=== PATIENT | female | born 1945 | race Caucasian/White ===

== ENCOUNTER → 2018-05-11 09:08 | Outpatient (CLI) | payer MEDICARE, OTHER ==
--- NOTE | ~2018-05-11 | EC ---
PATIENT:ANTOINE POTTER DATE OF SERVICE: 05/11/18 SEX: F MEDICAL RECORD: [id number] DATE OF : [birth year] LOCATION:D[facility] AGE OF PATIENT: 73 ADMISSION DATE: 05/11/18 REFERRING PHYSICIAN: INTERPRETING PHYSICIAN: FABIEN NINA MD ECHOCARDIOGRAM REPORT ECHO CHARGES 4 ECHO COMPLETE Date: 05/11 CLINICAL DIAGNOSIS: AFIB/FLUTTER/SOB/PALPS/CP ECHOCARDIOGRAPHIC MEASUREMENTS (adult normal given) AC root (d.<3.7cm) 3.6 cm LV Septum d (<1.2 cm> 1.6 cm Valve Excursion 1.4 cm LV Septum (systole) 1.5 cm Left Atria (s.<4.0cm> 4.1 cm LVPW d(<1.2cm) 1.1 cm RV (d.<2.3cm) 3.7 cm LVPW (sytole) 1.5 cm LV diastole(<5.6CM) 4.8 cm MV E-F(>70mm/sec) cm LV systole 3.2 cm LVOT Diameter 1.6 cm MV exc.(>10mm) 1.1 cm Est.ejection fraction (50-75%) % DOPPLER: LVIT cm/sec A 28.0 cm/sec E 80.0 cm/sec LA cm/sec RVSP 42 mmHg LVOT 84 cm/sec AOP1/2T m/s Asc. Ao 122 cm/sec RVOT 80 cm/sec RA cm/sec PA 116 cm/sec AV Gradient Peak 5.99 mmHg AV Mean 3.02 mmHg AV Area 1.5 cm MV Gradient Peak 5.12 mmHg MV Mean 1.85 mmHg MV Area cm COMMENTS: Telegraph Editor: Mulugeta ZHENG Executive Talent Acquisition Consultant: Slava Nina TAPE# PACS Pericardial Effusion Y DATE OF SERVICE: 05/11/2018 PROCEDURE: Transthoracic echocardiogram. FINDINGS: 1. The left atrium is 4.7 cm, moderately dilated. 2. The left ventricle has ejection fraction of 55%. The patient was noted to have AFib, although one inflow looks like it could be flutter waves, so it is fib/flutter. The overall size of the left ventricle is normal. There is evidence of left ventricular hypertrophy. Inflow characteristics of course were ECHOCARDIOGRAM REPORT [id number] ABBEY,CARLANN GELLATLY difficult to gauge because of the atrial dysrhythmia. The overall ejection fraction is 50% to 55%. There is no obvious regional wall motion abnormalities. 3. The aortic valve is normal. 4. The mitral valve has moderate mitral regurgitation. It is posteriorly directed. 5. The tricuspid valve has moderate tricuspid regurgitation, RVSP 42 mmHg. 6. The right ventricle is mildly dilated. 7. The right atrium is moderately dilated. 8. The pulmonic valve is shown to have mild regurgitation. There is a trace pericardial effusion. CONCLUSIONS: The patient has evidence of hypertensive heart disease with an atrial dysrhythmia and moderate mitral regurgitation and dilatation of the left atrium. TRANSINT:[id number] Voice Confirmation ID: [id number] DOCUMENT ID: [id number] FABIEN NINA MD at 1127 CC: [id number] DICTATION DATE: 05/12/18918 MEDICAL CODING SPECIALIST: 05/12/18 1143 [facility] CLI 05/11/18 [id number] [place] [address]
[~2018-05-11 09:08] MED LIST: BAYER CHEWABLE81 MG PO; BETAPACE 80 MG80 MG PO; COUMADIN5 MG PO; COZAAR50 MG PO; ELIQUIS5 MG PO; ESTRACE2 MG PO; FUROSEMIDE40 MG PO; K-DUR20 MEQ PO; LOPRESSOR25 MG PO; VITAMIN D31000 UNIT PO
[2018-07-06 07:23] VITALS: BMI 20.2
== END | disposition home or self-care (01) ==
LOC: D.ECHO 09:08
DX: I48.91 Unspecified atrial fibrillation (principal); I48.92 Unspecified atrial flutter; R06.02 Shortness of breath; R00.2 Palpitations; R07.9 Chest pain, unspecified

== ENCOUNTER → 2018-05-20 07:23 | Outpatient (CLI) | payer MEDICARE, OTHER ==
[~2018-05-20] VITALS: Ht 170.2 cm; Wt 62.3 kg
--- NOTE | ~2018-05-20 | TEE ---
PATIENT:ANTOINE POTTER MEDICAL RECORD: [id number] LOCATION:D[facility] AGE OF PATIENT: 73 ADMISSION DATE: 05/20/18 SEX: F REFERRING PHYSICIAN: INTERPRETING PHYSICIAN: FABIEN NINA MD TRANSESOPHAGEAL ECHOCARDIOGRAM Date: 05/20/18 PARVIN CHARGE Y INDICATIONS: AFIB ASSESS FOR CLOT PRECARDIOVERSION PREMEDICATIONS: PATIENT'S RESPONSE PROCEDURE DOPPLER MEASUREMENTS: LVIT LA PA RA LVOT RVOT Asc. Ao AV Gradient Peak AV Mean AV Area MV Gradient Peak MV Mean MV Area INTERPRETATION: Doppler: 2-D: NO CLOTS COLOR FLOW DOPPLER NORMAL SALINE STUDY: MISCELLANOUS: DIAGNOSIS: PLAN: Fleet Manager:4 Dr. Nina Ironing Machine Operator: 2 ARNOLD ZHENG COMMENTS: DATE OF SERVICE: PROCEDURE: The patient is a 73-year-old white female who underwent a transesophageal echocardiogram and also DC cardioversion. INDICATIONS: The patient is in atrial flutter with rapid ventricular response. PROCEDURE IN DETAIL: The patient was brought into the cardiac catheterization lab in a stable condition, placed in supine position on the catheterization TRANSESOPHAGEAL ECHOCARDIOGRAM REPORT [id number] GADIEL POTTER table where she had the oral airway topically anesthetized with lidocaine and Maalox. We were then able to utilize that topical anesthesia to place the transesophageal echocardiogram into the mid esophagus to visualize the left atrium, left atrial appendage specifically. Once visualized, the probe was withdrawn. FINDINGS: The left atrium is moderately enlarged in the 4.5 to 4.7 cm range. There was no spontaneous echo contrast. The left atrium actually showed organized conduction and pulse wave velocities that were about 50 milliseconds. The patient had no visualized thrombus and the procedure was terminated with successful visualization of the left atrium and left atrial appendage. DC CARDIOVERSION: The patient had anterior and posterior pads placed in appropriate position. We then charged the defibrillator to 200 joules and then in biphasic fashion we delivered 200 joules of electricity and initially the patient was in sinus rhythm and then went into an SVT and then went back into a sinus rhythm. We then gave 5 of Lopressor IV and the patient's rhythm became more regularized without PAT and slowed down into the 60s to 70s and blood pressure was fine. She recovered nicely from the anesthesia. Anesthesia was given via the anesthesiologist with propofol. IMPRESSION: The patient had atrial flutter with rapid ventricular response. She had dilated left atrium. There is no evidence of left atrial appendage thrombus. She underwent successful cardioversion with biphasic 200 joules. We will continue with beta blockade. We will continue with the Eliquis for at least 3 weeks until we can verify continued resolution of the arrhythmia. We will treat very aggressively the patient's underlying risk; however, given the patient did have significant angina at times with fast heart rates and abnormal stress test, we will likely go forward with diagnostic angiography here in the near future. TRANSINT:[id number] Voice Confirmation ID: [id number] DOCUMENT ID: [id number] at 1436 CC: [id number] DICTATION DATE: 05/20/18 1111 HUMAN ANATOMY TEACHER: 05/20/[address] [facility] CLI 05/20/18 [id number] [place] [address]
--- NOTE | ~2018-05-20 | HEMODYNAMI ---
PATIENT:ANTOINE POTTER MEDICAL RECORD: [id number] : 49 LOCATION:[facility] ADMISSION DATE: 05/20/18 Generatedon:05/20/201811:14 Patient name: ANTOINE POTTER Patient #: [id number] SSN: D OB: 1945 Date of study: 05/20/2018 Page: Of Hemodynamic Procedure Report Patient Data Patient Demographics Procedure consent was obtained First Name: ANTOINE Gender: Female Last Name: ABBEY : 1945 [facility] Initial: ANGEL Age: 73 year(s) Patient #: [id number] Race: Unknown Additional ID: [id number] Contact details Address: [address] [place] [address] State: [place] City: [facility] Zip code: [address] Past Medical History Allergies Allergen Reaction Date Comments Reported Other allergy 05/20/2018 Keflex Admission Admission Data Admission Date: 05/20/2018 Admission Time: 7:23 Admit Source: Other Procedure Procedure Types Cath Procedure Diagnostic Procedure LHC Cardioversion External PARVIN Procedure Description Procedure Date Procedure Date: 05/20/2018 Procedure Start Time: 10:52 Procedure End Time: 11:04 Procedure Staff Name Function Alexis Rodriguez MD Performing Physician Adrianne Rosado RT Monitor Ramya Bryant RN Nurse Mihir Pedraza RT Janitorial Supervisor Wilber Esquivel MD Additional personnel Catrachito Reyes Mold Shifter Procedure Data Cath Procedure Estimated blood loss: 0 ml Procedure Complications No complications Procedure Medications Medication Administration Route Dosage Oxygen etCO2 Nasal cannula 2 l/min unlisted medication 15 ml unlisted medication 30 ml Lopressor I.V. 5 mg Lopressor I.V. 2.5 mg Refer to Anesthesia Notes for Sedation Medications Hemodynamics Rest Heart Rate: 152 (bpm) Snapshots Pre Cath Intra NCS Post Cath Vital Signs Time Heart Resp SPO2 etCO2 NIBP (mmHg) Rhythm Pain Sedation Rate (ipm) (%) (mmHg) Status Level (bpm) 10:33:02 125 16 99 0 Measuring NSR 0 (11) 10(A) , No pain 10:37:01 138 16 99 0 No Cuff NSR 0 (11) 10(A) , No pain 10:38:39 115 19 99 0 144/102(114) NSR 0 (11) 10(A) , No pain 10:42:45 129 20 99 24.7 145/107(117) NSR 0 (11) 10(A) , No pain 10:46:53 124 13 96 27 123/85(111) NSR 0 (11) 10(A) , No pain 10:51:03 139 19 98 24.7 126/80(112) NSR 0 (11) 10(A) , No pain 10:56:18 117 26 100 17.2 113/78(86) NSR 0 (11) 9(A) , No pain 10:59:41 97 17 98 12.7 114/88(101) NSR 0 (11) 9(A) , No pain 11:03:51 73 16 100 13.4 104/74(83) NSR 0 (11) 10(A) , No pain Medications Time Medication Route Dose Verified Delivered Reason Notes Effective ness by by 10:33:04 Oxygen etCO2 2 Alexis Buffie used for Nasal l/min Michael Bryant RN procedure cannula 10:35:22 Refer to Alexis Buffie Anesthesia Michael Bryant RN Notes for MD Sedation Medications 10:35:31 Licocaine gargle 15 ml Alexis Buffie Per Visc. Michael reddy MD 10:35:58 Maalox gargle 30 ml Alexis Buffie Per Michael reddy MD 10:58:15 Lopressor I.V. 5 mg Alexis Buffie Per Michael reddy MD 11:06:44 Lopressor I.V. 2.5 Alexis Buffie Per mg Michael Bryant RN physician Procedure Log Time Note 9:32:55 Informed consent obtained and on chart 9:32:57 Admit Source: Other 9:33:15 Diagnostic Cath status Elective 9:33:32 Time tracking: Regular hours (M-F 7:00 - 5:00) 9:33:35 Plan of Care:Hemodynamics will remain stable., Cardiac rhythm will remain stable., Comfort level will be maintained., Respiratory function will remain adequate., Patient/ family verbilizes understanding of procedure., Procedure tolerated without complication., Recovers from procedure without complications.. 10:12:40 Ramya Bryant RN sent for patient. Start room use. 10:24:43 Patient received from Pre/Post Procedure Room to CCL 2 Alert and oriented. Tansferred to table in Supine position. 10:25:23 Wilber Esquivel MD present and monitoring patient for TIVA. 10:31:08 Warm blankets applied, and india hugger turned on for patient comfort. 10:31:09 Correct patient and procedure confirmed by team. 10:31:10 ECG and BP/O2 sat monitors applied to patient. 10:31:12 Vital chart was started 10:31:17 Baseline sample Acquired. 10:31:24 Rhythm: atrial flutter 10:31:25 Full Disclosure recording started 10:31:34 H&P Date Dictated: 05/20/2018 Within 30 days and on chart., H&P Addendum completed by physician on day of procedure. (MUST COMPLETE FOR ALL OUTPATIENTS). 10:31:40 Family in waiting room. 10:31:42 Patient NPO since Midnight. 10:32:01 Patient allergic to Other allergyKeflex 10:32:06 Is the patient allergic to Iodine/contrast media? No. 10:32:08 Is patient on blood thinner?No 10:32:10 Patient diabetic? No. 10:32:25 Snore? No 10:32:27 Sleep apnea? No 10:32:35 Dentures? Yes in tight 10:32:44 Patient pain scale 0/10 SOB. 10:32:55 IV patent on arrival in left forearm with 0.9% NaCl at O. 10:32:59 Lab results completed and on chart. 10:33:03 Alarms reviewed by R. N. 10:33:04 Oxygen 2 l/min etCO2 Nasal cannula was administered by Ramya Bryant RN; used for procedure; 10:33:04 Physician paged 10:35:22 Refer to Anesthesia Notes for Sedation Medications was administered by Ramya Bryant RN; ; 10:35:31 Licocaine Visc. 15 ml gargle was administered by Ramya Bryant RN; Per physician; 10:35:58 Maalox 30 ml gargle was administered by Ramya Bryant RN; Per physician; 10:37:56 Quick Combo opened to sterile field. 10:38:02 Quick combo pads placed on patients chest and back. 10:40:50 Physician arrived 10:40:51 --------ALL STOP TIME OUT------ 10:40:52 Final Timeout: patient, procedure, and site verified with staff and physician. All members of the team are in agreement. 10:41:00 Sedation plan: TIVA Medication:Propofol 10:51:13 Catrachito Reyes Dental Hygiene Instructor present for PARVIN. 10:52:52 Procedure started. 10:53:48 PARVIN started. 10:54:49 PARVIN completed. 10:55:08 Defibrillator synced and charged to 200 Joules. 10:55:25 Shock delivered. 10:57:10 Patient cardioverted to sinus rhythm . 10:58:15 Lopressor 5 mg I.V. was administered by Ramya Bryant RN; Per physician; 11:03:00 Procedure ended.(Physican Out) 11:03:33 Post-procedure physical assessment completed. ASA score P 2 - A patient with mild systemic disease as per Alexis Rodriguez MD. 11:03:37 Post procedure rhythm: sinus rhythm 11:03:40 Estimated blood loss: 0 ml 11:03:44 Post procedure instruction explained to patient.Patient verbalizes understanding. 11:03:51 Procedure and supply charges have been captured, reviewed, submitted and are correct. 11:04:10 Procedure Complication : No complications 11:04:13 Vital chart was stopped 11:04:14 See physician's report for complete and final results. 11:04:17 Report given to Pre/Post Procedure Room. 11:04:30 Procedure ended. 11:04:30 Full Disclosure recording stopped 11:06:44 Lopressor 2.5 mg I.V. was administered by Ramya Bryant RN; Per physician; 11:09:17 End room use (Document Last) Device Usage Item Manufacture Quantity Catalog Hospital Part Current Minimal Lot# / Name Number Charge Number Stock Esther velasco# Code [id number] 1 [id number] Combo Signature Audit Rudyard Stage Time Signature Unsigned Intra-Procedure 05/20/2018 Adrianne Rosado 11:14:47 AM RT(R) Signatures Monitor : Adrianne Rosado Signature : RT Date : Time : [address] [place] [address]
[2018-05-20 07:48] VITALS: BP 126/72; Ht 170.2 cm; Wt 62.3 kg
[2018-05-20 08:07] LABS: BASOPHILS 0.2 % (0-2); EOSINOPHILS 0.9 % (0-7); HEMATOCRIT 38.7 % (36.0-48.0); HEMOGLOBIN 12.8 g/dL (12-16); IMMATURE GRANULOCYTES 0.2 % (0-5); MCH 30.8 pg (26.0-34.0); MCHC 33.1 g/dL (31.0-37.0); MCV 93.3 fL (80.0-100.0); MEAN PLATELET VOLUME 11.6 fL (7.4-10.4); MONOCYTES 9.7 % (2-11); PLATELET COUNT 176 10x3/uL (130-400); RBC 4.15 10x6/uL (4.00-5.40); RDW 13.5 % (11.5-14.5); WBC 5.7 10x3/uL (4.8-10.8)
[2018-05-20 08:28] LABS: CALCIUM 8.9 mg/dL (8.5-10.1); CARBON DIOXIDE 31.1 mmol/L (21.0-32.0); CREATININE - SERUM 0.9 mg/dL (0.6-1.3); INR 1.29 (0.85-1.17); POTASSIUM - SERUM 4.1 mmol/L (3.5-5.1); PROTIME 15.7 SECONDS (11.6-15.0)
== END | disposition home or self-care (01) ==
LOC: D.CATH 07:23
PROVIDERS: Internal Medicine Cardiovascular Disease
DX: I48.92 Unspecified atrial flutter (principal); Z79.01 Long term (current) use of anticoagulants; Z01.812 Encounter for preprocedural laboratory examination

== ENCOUNTER → 2018-06-29 09:38 | Outpatient (CLI) | payer MEDICARE, OTHER ==
[2018-05-20 07:48] VITALS: BMI 21.5
[2018-06-29 10:14] LABS: BASOPHILS 0.1 % (0-2); EOSINOPHILS 2.9 % (0-7); HEMATOCRIT 42.1 % (36.0-48.0); HEMOGLOBIN 13.7 g/dL (12-16); IMMATURE GRANULOCYTES 0.1 % (0-5); LYMPHOCYTES 30.5 % (15-50); MCH 29.7 pg (26.0-34.0); MCHC 32.5 g/dL (31.0-37.0); MCV 91.3 fL (80.0-100.0); MEAN PLATELET VOLUME 11.6 fL (7.4-10.4); MONOCYTES 10.4 % (2-11); PLATELET COUNT 177 10x3/uL (130-400); RBC 4.61 10x6/uL (4.00-5.40); RDW 13.2 % (11.5-14.5); WBC 6.9 10x3/uL (4.8-10.8)
[2018-06-29 10:46] LABS: ALBUMIN 3.4 g/dL (3.4-5.0); ANION GAP 10.3 mmol/L (8-16); BILIRUBIN - TOTAL 0.71 mg/dL (0.2-1.3); CALCIUM 8.4 mg/dL (8.5-10.1); CARBON DIOXIDE 29.4 mmol/L (21.0-32.0); POTASSIUM - SERUM 4.7 mmol/L (3.5-5.1); PROTEIN - SERUM 6.2 g/dL (6.4-8.2)
== END | disposition home or self-care (01) ==
LOC: D.RAD 09:38
PROVIDERS: Internal Medicine Cardiovascular Disease
DX: I48.91 Unspecified atrial fibrillation (principal); R07.9 Chest pain, unspecified; R00.2 Palpitations

== ENCOUNTER 2018-07-06 06:31 | Outpatient (CLI) | payer MEDICARE, OTHER ==
[~2018-07-06] VITALS: Ht 170.2 cm; Wt 58.6 kg
--- NOTE | ~2018-07-06 | OP ---
PATIENT NAME: ANTOINE POTTER MEDICAL RECORD: [id number] :49 LOCATION:D.[facility] ADMISSION DATE: SURGEON: FABIEN NINA MD DATE OF OPERATION: 07/06/2018 PROCEDURE: Left heart cath, LV gram, coronary angiogram. RAZOR SHARPENER: Fabien Nina MD PROCEDURE IN DETAIL: The patient was brought to cardiac catheterization lab in stable condition. Both groins were sterilely prepped and draped, including the right wrist. The patient had a 6-Occitan sheath placed in the right radial artery using modified Seldinger technique. The patient then had serial catheter utilized to selectively engage the left ventricular cavity, the right coronary artery and the left coronary artery respectively for complete left heart catheterization. FINDINGS: 1. Right coronary artery is a small nondominant vessel, normal. 2. Left main is shown to be normal. 3. The LAD showed to have a mid area of 40% stenosis at the point of a small intramyocardial bridge. 4. The circumflex is shown to have a large, dominant distribution without stenoses. HEMODYNAMICS: Left ventricular ejection fraction is 55%. The end-diastolic pressure was normal. There was 1+ to 2+ mitral regurgitation. EDP was normal. IMPRESSION: 1. Mild single vessel coronary artery disease, [id number] moderate mitral regurgitation. 2. Mild coronary artery disease. RECOMMENDATIONS: Aggressive secondary risk factor modification, medical management. TRANSINT:[id number] Voice Confirmation ID: [id number] DOCUMENT ID: [id number] FABIEN NINA MD at 0738 CC: [id number] DICTATION DATE: 07/06/18 08 MANAGER OF BROADCAST CONTENT: 07/06/18919 [facility] CLI 07/06/18 [id number] [place] [address] [id number]
--- NOTE | ~2018-07-06 | HEMODYNAMI ---
PATIENT:ANTOINE POTTER MEDICAL RECORD: [id number] : 49 LOCATION:[facility] ADMISSION DATE: 07/06/18 Generatedon:07/06/20188:40 Patient name: ANTOINE POTTER Patient #: [id number] SSN: D OB: 1945 Date of study: 07/06/2018 Page: Of Hemodynamic Procedure Report Patient Data Patient Demographics Procedure consent was obtained First Name: ANTOINE Gender: Female Last Name: ABBEY : 1945 Middle Initial: ANGEL Age: 73 year(s) Patient #: [id number] Race: Unknown Additional ID: [id number] Contact details [address]: [address] [place] [address] State: [place] [facility] [place]: [address] Past Medical History Allergies Allergen Reaction Date Comments Reported Other allergy 05/20/2018 Keflex Other allergy 07/06/2018 Keflex Admission Admission Data Admission Date: 07/06/2018 Admission Time: 6:31 Procedure Procedure Types Cath Procedure Diagnostic Procedure [facility] w/Coronaries Procedure Description Procedure Date Procedure Date: 07/06/2018 Procedure Start Time: 8:30 Procedure End Time: 8:39 Procedure Staff Name Function Alexis Rodriguez MD Performing Physician Ramya Bryant RN Nurse Jackelin Michelle RT Scrub Adrianne Rosado RT Monitor Procedure Data Cath Procedure Fluoroscopy Diagnostic fluoroscopy Total fluoroscopy Time: 126 time: 126 min min Diagnostic fluoroscopy Total fluoroscopy dose: 1 dose: 1 mGy mGy Contrast Material Contrast Material Type Amount (ml) Isovue 300 24 Entry Location Entry Primary Successful Side Size Upsize Upsize Entry Closure Alfred ccessful Closure Location (Fr) 1 (Fr) 2 (Fr) Remarks Device Remarks Radial Right 6 Fr Mechanical TR band artery Short Compression Estimated blood loss: 10 ml Diagnostic catheters Device Type Used For End Catheter Placement DIAGNOSTIC Mitchell 110cm 5 Procedure Fr catheter ([id number]) Procedure Complications No complications Procedure Medications Medication Administration Route Dosage Oxygen etCO2 Nasal cannula 2 l/min Lidocaine 2% added to field 20 Heparin Flush Bag added to field 2 bags (1000units/500ml NS) 0.9% NaCl I.V. 100 ml/hr Versed I.V. 2 mg Fentanyl I.V. 25 mcg Radial Cocktail I.A. 1 syringe (Verapomil 2mg/Nitro 400mcg/Heparin 1500units) Hemodynamics Rest Heart Rate: 55 (bpm) Pressure Samples Time Site Value (mmHg) Purpose Heart Use Rate(bpm) 8:33 LV 121/1,12 EDP 55 8:34 LV 115/2,12 Snapshot 55 Gradients Valve Time Site Site Mean SEP/DFP Peak To Heart Use 1 2 (mmHg) (sec/min) Peak Rate (mmHg) (bpm) Aortic 8:34 LV AO 57 Snapshots Pre Cath Intra NCS Post Cath Vital Signs Time Heart Resp SPO2 etCO2 NIBP (mmHg) Rhythm Pain Sedation Rate (ipm) (%) (mmHg) Status Level (bpm) 8:18:06 57 12 100 0 153/76(132) NSR 0 (11) 10(A) , No pain 8:22:47 83 13 100 0 143/93(125) NSR 0 (11) 10(A) , No pain 8:27:25 57 16 96 27.1 149/97(131) NSR 0 (11) 10(A) , No pain 8:32:00 52 17 100 0 117/74(92) NSR 0 (11) 9(A) , No pain 8:36:41 52 16 95 29.3 116/62(79) NSR 0 (11) 10(A) , No pain Medications Time Medication Route Dose Verified Delivered Reason Notes Effectiveness by by 8:18:07 Oxygen etCO2 2 l/min Alexis Buffie used for Nasal Michael Bryant RN procedure cannula 8:18:15 Lidocaine 2% added 20ml Alexis Alexis for local to vial Michael Rodriguez MD anesthetic field SEAY 8:18:21 Heparin Flush added 2 bags Alexis Alexis used for Bag to Michael Rodriguez MD procedure (1000units/500ml field SEAY NS) 8:18:31 0.9% NaCl I.V. 100 Alexis Buffie Per ml/hr Michael Bryant RN physician 8:25:46 Versed I.V. 2 mg Alexis Buffie for sedation Michael Bryant RN, MD 8:28:52 Fentanyl I.V. 25 mcg Alexis Bui for sedation Michael Bryant RN, MD 8:32:23 Radial Cocktail I.A. 1 Alexis arriola (Verapomil syringe Michael Rodriguez MD vasodilation 2mg/Nitro MD 400mcg/Heparin 1500units) Procedure Log Time Note 8:00:03 Time tracking: Regular hours (M-F 7:00 - 5:00) 8:00:07 Plan of Care:Hemodynamics will remain stable., Cardiac rhythm will remain stable., Comfort level will be maintained., Respiratory function will remain adequate., Patient/ family verbilizes understanding of procedure., Procedure tolerated without complication., Recovers from procedure without complications.. 8:00:11 Ramya Bryant RN sent for patient. Start room use. 8:10:16 Patient received from Pre/Post Procedure Room to CCL 1 Alert and oriented. Tansferred to table in Supine position. 8:10:17 Warm blankets applied, and india hugger turned on for patient comfort. 8:10:17 Correct patient and procedure confirmed by team. 8:10:18 Signed procedure consent form obtained from patient. 8:10:19 ECG and BP/O2 sat monitors applied to patient. 8:10:20 Full Disclosure recording started 8:16:37 Vital chart was started 8:18:07 Oxygen 2 l/min etCO2 Nasal cannula was administered by Ramya Bryant RN; used for procedure; 8:18:15 Lidocaine 2% 20ml vial added to field was administered by Alexis Rodriguez MD; for local anesthetic; 8:18:21 Heparin Flush Bag (1000units/500ml NS) 2 bags added to field was administered by Alexis Rodriguez MD; used for procedure; 8:18:31 0.9% NaCl 100 ml/hr I.V. was administered by Ramya Bryant RN; Per physician; 8:21:33 Baseline sample Acquired. 8:21:39 Rhythm: sinus rhythm 8:22:03 H&P Date Dictated: 07/01/2018 Within 30 days and on chart., H&P Addendum completed by physician on day of procedure. (MUST COMPLETE FOR ALL OUTPATIENTS). 8:22:05 Pre-procedure instructions explained to patient. 8:22:07 Family in waiting room. 8:22:11 Patient NPO since Midnight. 8:22:33 Patient allergic to Other allergyKeflex 8:22:39 Is the patient allergic to Iodine/contrast media? No. 8:22:40 Was the patient premedicated? Yes 8:22:42 Is patient on blood thinner?Yes 8:22:55 Coumadin 6 days ago 8:23:03 ACC The patient was administered the following blood thiners within the last 24 hours: None 8:23:06 Patient diabetic? No. 8:23:11 Snore? No 8:23:13 Sleep apnea? No 8:23:15 Deviated septum? No 8:23:19 Opens mouth fully? Yes 8:23:21 Sticks out tongue? Yes 8:23:30 Dentures? Yes tight 8:23:36 Patient pain scale 0/10 ?. 8:23:42 IV patent on arrival in left forearm with 0.9% NaCl at [facility]. 8:23:47 Lab results completed and on chart. 8:23:51 Right Radial & Right Groin area was prepped with chlora-prep and draped in sterile fashion 8:23:53 Alarms reviewed by R. N. 8:23:53 Sharps counted by scrub and verified by R.N. 8:23:54 Physician paged 8:23:55 Physician arrived 8:23:56 --------ALL STOP TIME OUT------ 8:23:56 Final Timeout: patient, procedure, and site verified with staff and physician. All members of the team are in agreement. 8:24:00 Right Radial & Right Groin site verified by team. 8:24:03 Physical assessment completed. ASA score P 2 - A patient with mild systemic disease as per Alexis Rodriguez MD. 8:24:07 Sedation plan: IV Moderate Sedation Medication:Versed, Fentanyl 8:25:46 Versed 2 mg I.V. was administered by Ramya Bryant RN; for sedation; 8:25:53 Use device set Radial Dx or PCI 8:25:55 ACIST Syringe (64122) opened to sterile field. 8:25:56 Medline Cath Pack ([id number]) opened to sterile field. 8:25:56 Bag Decanter (2002) opened to sterile field. 8:25:56 DIAGNOSTIC WIRE .035 260cm J wire (766672) opened to sterile field. 8:25:57 ACIST Hand Control (20332) opened to sterile field. 8:25:57 ACIST Manifold (28293) opened to sterile field. 8:25:58 Tegaderm 4 x 4 (1626W) opened to sterile field. 8:26:00 MBrace Wrist Support ([id number]) opened to sterile field. 8:26:02 NEEDLE Cook 21G 4cm Radial ([id number]) opened to sterile field. 8:26:05 SHEATH 6Fr Prelude Radial ([id number]) opened to sterile field. 8:28:52 Fentanyl 25 mcg I.V. was administered by Ramya Bryant RN; for sedation; 8:30:30 Zero performed for pressure channel P1 8:30:40 Procedure started. 8:30:56 Local anesthetic to right radial artery with Lidocaine 2% by Alexis Rodriguez MD.INITIAL ACCESS ONLY 8:31:46 A 6 Fr Short sheath was inserted into the Right Radial artery 8:32:23 Radial Cocktail (Verapomil 2mg/Nitro 400mcg/Heparin 1500units) 1 syringe I.A. was administered by Alexis Rodriguez MD; for vasodilation; 8:32:26 A DIAGNOSTIC Mitchell 110cm 5 Fr catheter ([id number]) was advanced over the wire and used for Procedure. 8:32:30 LV angiography performed. 8:33:20 LV gram done using LEAL 8:34:39 EF : 55 % 8:34:45 RCA angiography performed. 8:35:03 LCA angiography performed. 8:35:49 Catheter removed. 8:36:30 Sheath removed intact; hemostasis achieved with Mechanical Compression to the Right Radial artery. 8:36:39 Procedure ended.(Physican Out) 8:36:44 Fluoroscopy time 126.00 minutes. 8:36:50 Fluoroscopy dose: 1 mGy 8:36:50 Flurop Dose total: 1 8:36:55 Contrast amount:Isovue 300 24ml. 8:36:58 Sharps counted by scrub and verified by R.N. 8:38:04 TR band inflated with 10cc of air. 8:38:07 Insertion/operative site no bleeding no hematoma. 8:38:13 Post-procedure physical assessment completed. ASA score P 2 - A patient with mild systemic disease as per Alexis Rodriguez MD. 8:38:27 Post procedure rhythm: unchanged. 8:38:31 Estimated blood loss: 10 ml 8:38:34 Post procedure instruction explained to patient.Patient verbalizes understanding. 8:38:51 Procedure and supply charges have been captured, reviewed, submitted and are correct. 8:39:09 Procedure Complication : No complications 8:39:12 Vital chart was stopped 8:39:13 See physician's report for complete and final results. 8:39:15 Report given to Pre/Post Procedure Room. 8:39:18 Patient transfered to Pre/Post Procedure Room with Stretcher. 8:39:21 Procedure ended. 8:39:21 Full Disclosure recording stopped 8:39:24 End room use (Document Last) Device Usage Item Name Manufacture Quantity Catalog Number Hospital Part Current M inimal Lot# / Charge Number Stock Stock Serial# Code ACIST Syringe Acist 1 30741 [id number] 447768 128406 2 0 (87326) [employer] Medline Cath Cardinal 1 [id number] 081497 12969 257960 5 Carnival [facility] ([id number]) Bag Decanter Microtek 1 2001S 672533 05435 741956 5 (2001S) Medical Inc. DIAGNOSTIC WIRE St Chu 1 [id number] 409267 654448 521117 3 0 .035 260cm J wire (549766) ACIST Hand Acist 1 96846 378227 656291 544925 5 Control (43730) [employer] Inc ACIST Manifold Acist 1 29457 149580 246271 922282 5 (14264) [employer] Systems Inc Tegaderm 4 x 4 3M 1 1626W 711264 413812 465479 5 (1626W) MBrace Wrist Advanced 1 140-0250-00 726274 29914 061414 5 Support Vascular ([id number]) Dynamics NEEDLE Cook 21G Cook Medical 1 [id number] 178913 561013 456596 5 4cm Radial (Z71665) SHEATH 6Fr Merit 1 [id number] 978985 502958 204198 5 Prelude Radial Medical ([id number]) DIAGNOSTIC Terumo 1 65-0700 330571 424859 794202 5 Mitchell 110cm 5 Fr catheter (841601) Signature Audit [place] Stage Time Signature Unsigned Intra-Procedure 07/06/2018 Adrianne Rosado 8:40:51 AM RT(R) Signatures Monitor : Adrianne Rosado Signature : RT Date : Time : [place] [address] [place] [address]
[~2018-07-06 06:31] MED LIST changes: -BETAPACE 80 MG80 MG PO; -COUMADIN5 MG PO; -COZAAR50 MG PO; -FUROSEMIDE40 MG PO; -K-DUR20 MEQ PO
[2018-07-06] MEDS ORDERED: COZAAR50 MG PO (06:58)
[2018-07-06] MEDS ORDERED: BETAPACE 80 MG80 MG PO (06:58)
[2018-07-06] MEDS ORDERED: COUMADIN5 MG PO (06:59)
[2018-07-06] MEDS ORDERED: FUROSEMIDE40 MG PO (06:59)
[2018-07-06] MEDS ORDERED: K-DUR20 MEQ PO (06:59)
[2018-07-06 07:23] VITALS: BP 141/63; Ht 170.2 cm; Wt 58.6 kg
[2018-07-06 07:27] LABS: BASOPHILS 0.3 % (0-2); EOSINOPHILS 2.3 % (0-7); HEMATOCRIT 45.2 % (36.0-48.0); HEMOGLOBIN 15.1 g/dL (12-16); IMMATURE GRANULOCYTES 0.1 % (0-5); LYMPHOCYTES 35.6 % (15-50); MCH 30.4 pg (26.0-34.0); MCHC 33.4 g/dL (31.0-37.0); MCV 91.1 fL (80.0-100.0); MEAN PLATELET VOLUME 11.4 fL (7.4-10.4); MONOCYTES 9.8 % (2-11); NEUTROPHILS 51.9 % (40-80); PLATELET COUNT 209 10x3/uL (130-400); RBC 4.96 10x6/uL (4.00-5.40); RDW 13.4 % (11.5-14.5); WBC 7.7 10x3/uL (4.8-10.8)
[2018-07-06 07:37] LABS: CARBON DIOXIDE 30.7 mmol/L (21.0-32.0); CREATININE - SERUM 0.9 mg/dL (0.6-1.3); POTASSIUM - SERUM 4.7 mmol/L (3.5-5.1)
[2018-07-06 07:38] LABS: INR 1.1 (0.85-1.17); PROTIME 13.8 SECONDS (11.6-15.0)
== END 2018-07-06 10:58 | disposition home or self-care (01) ==
LOC: D.CATH 06:31
PROVIDERS: Internal Medicine Cardiovascular Disease
DX: I25.119 Atherosclerotic heart disease of native coronary artery with unspecified angina pectoris (principal); Q24.5 Malformation of coronary vessels; I34.0 Nonrheumatic mitral (valve) insufficiency; Z01.812 Encounter for preprocedural laboratory examination

== ENCOUNTER 2018-07-27 19:27 | Inpatient (IN) | payer MEDICARE, OTHER ==
[~2018-07-27] VITALS: Ht 170.2 cm; Wt 64.7 kg
--- NOTE | ~2018-07-27 | HP ---
PATIENT: STANLEY POTTER MEDICAL RECORD: [id number] ACCOUNT: [id number] LOCATION:.[facility]2106 : [birth year] ADMISSION DATE: 07/27/18 PCP: MELANY GOMEZ DO HISTORY AND PHYSICAL EXAMINATION HISTORY OF PRESENT ILLNESS: A 73-year-old female presented to the Emergency Room complaining of right abdominal and right flank pain beginning Thursday with nausea and vomiting, progressive symptoms. Admits chills, no known fever. Also, short of breath. She has a history of atrial fibrillation, controlled with current medications, although she was in AFib on admission with the acute illness. ALLERGIES: REPORTED CEPHALEXIN. She has had extensive cardiac workup for her AFib. CURRENT MEDICATIONS: Sotalol, Coumadin, estradiol, losartan, Lasix and potassium. REVIEW OF SYSTEMS: GENERAL: Decreased appetite with acute illness. HEENT: No cephalgia, visual changes, tinnitus, epistaxis, or dysphagia. CARDIOVASCULAR: As above. PULMONARY: Denies hemoptysis, denies night sweats. GASTROINTESTINAL: Denies hematemesis, hematochezia or melena. Does admit nausea and vomiting, abdominal pain, right flank pain. MUSCULOSKELETAL: No acute changes. ENDOCRINE: Denies polyuria, polydipsia, or polyphagia. PHYSICAL EXAMINATION: VITAL SIGNS: Temp 97.9, blood pressure is 113/57, heart rate 84, respirations 18, O2 sat 95% room air. EKG, heart rate on admission showed atrial flutter with a vent rate of 155. HEENT: Head is normocephalic, atraumatic. Eyes: Pupils are equally round and reactive to light and accommodation. Extraocular muscles intact. Conjunctivae not injected. Ears: Canals patent, TMs are intact. Nose: Nares patent without drainage. Throat: No erythema, no exudates. NECK: Supple. No lymphadenopathy, no JVD. HEART: Presently regular rate and rhythm. LUNGS: Clear to auscultation bilaterally. Breathing is nonlabored. ABDOMEN: Right-sided tenderness. No rebound, no guarding. Right CVA tenderness. EXTREMITIES: Present times 4. NEUROLOGIC: Intact. SKIN: Warm and dry. No rash. LABORATORY AND DIAGNOSTIC DATA: CBC: White count 7.2, hemoglobin 11.6, hematocrit 35.8, platelets 179. Chemistry shows sodium 137, potassium 4.2, chloride 104, bicarbonate 29.8, BUN 14, creatinine 1.1, glucose 107, calcium 8.1. CK 96, CK-MB 0.8, troponin less than 0.017. Urinalysis; 1+ blood, moderate bacteria. Urine culture is pending. CT of abdomen and pelvis showed stranding consistent with right-sided pyelonephritis and pyoureter, scant amount of abdominopelvic ascites, probable right ovarian cyst. The patient is admitted, started on IV antibiotics. HISTORY AND PHYSICAL [id number] STANLEY POTTER ASSESSMENT AND PLAN: 1. Pyelonephritis, pyoureter. IV antibiotics and supportive care. 2. Atrial fibrillation/atrial flutter. Cardiology was consulted. She is well established with Dr. Rodriguez, supportive care. TRANSINT:[id number] Voice Confirmation ID: [id number] DOCUMENT ID: [id number] MELANY GOMEZ DO at 1150 CC: [id number] DICTATION DATE: 07/28/18831 CONTENT STRATEGIST: 07/28/18 [address] [facility] [address] [place] [address]
--- NOTE | ~2018-07-27 | DS ---
PATIENT:STANLEY POTTER :49 MEDICAL RECORD: [id number] DISCHARGE SUMMARY ADMISSION DATE: 07/27/18 DISCHARGE DATE: 07/31/18 DATE OF ADMISSION: 07/27/2018 DATE OF DISCHARGE: 07/31/2018 ADMISSION DIAGNOSES: Pyelonephritis, pyoureter, atrial fibrillation with rapid ventricular response. DISCHARGE DIAGNOSES: Pyelonephritis, pyoureter, atrial fibrillation with rapid ventricular response, Coumadin toxicity with anemia. HOSPITAL COURSE: The patient was admitted to the Emergency Room with flank and abdominal pain, nausea, vomiting, EKG showed an AFib with RVR. She was restarted on her home medications. CT showed the pyelonephritis, pyoureter, urine cultures were obtained. She was started on empiric antibiotics. INR was not obtained in the ER. INR was obtained. Coumadin was 8.5, Coumadin was held. The next morning it was 9.4. She was given 1 dose of vitamin K with normalization. She has had paroxysmal AFib during her hospitalization. I discussed this with her, will restart her Coumadin at a lower dose. Will now monitor her INRs in our clinic. She will come in Thursday for pro time, CBC, INR. She is feeling much better. She is adamant about going home. She has a NURSES DIRECTOR that will stay with her through the weekend. She is discharged to home in stable and improved condition. PHYSICAL EXAMINATION: VITAL SIGNS: On discharge, temperature 97.9, blood pressure 122/62, heart rate 57, respirations 19, O2 sats 98%. On telemetry, she remains in presently in sinus rhythm. HEART: Regular rate and rhythm. LUNGS: Clear. ABDOMEN: Soft. EXTREMITIES: Present times 4. Resolving ecchymosis diffusely. LABORATORY DATA: CBC: White count 7.7, hemoglobin 9.6, which is improved, hematocrit 29.6, platelets 153. INR is 1.47. Sodium 142, potassium 3.3. Urine culture greater than 100,000 mixed colony-forming units. Will treat empirically with Macrodantin. Renal ultrasound a persistent [id number] right hydronephrosis, unclear etiology. I discussed this with the patient, will complete workup as outpatient. Again, she will follow up in the clinic on Thursday for lab work. Will follow up with me on Thursday. DISCHARGE MEDICATIONS: Per med rec. DISCHARGE SUMMARY REPORT [id number] STANLEY POTTER She understands to return to the Emergency Room with any resumption or worsening symptoms. TRANSINT:[id number] Voice Confirmation ID: [id number] DOCUMENT ID: [id number] MELANY GOMEZ DO at 1030 CC: [id number] DICTATION DATE: 07/31/18 1210 APPARATUS ENGINEERING TECHNOLOGIST: 08/01/18317 DIS IN 07/31/18 [place] [id number] [place] [id number]
[~2018-07-27 19:27] MED LIST changes: +BETAPACE 80 MG80 MG PO; +COUMADIN5 MG PO; +COZAAR50 MG PO; +FUROSEMIDE40 MG PO; +K-DUR20 MEQ PO
[2018-07-27 20:04] LABS: BASOPHILS 0.2 % (0-2); EOSINOPHILS 0.5 % (0-7); HEMATOCRIT 40.3 % (36.0-48.0); HEMOGLOBIN 13.1 g/dL (12-16); IMMATURE GRANULOCYTES 0.2 % (0-5); LYMPHOCYTES 25.1 % (15-50); MCH 29.4 pg (26.0-34.0); MCHC 32.5 g/dL (31.0-37.0); MCV 90.4 fL (80.0-100.0); MEAN PLATELET VOLUME 10.9 fL (7.4-10.4); MONOCYTES 9.3 % (2-11); NEUTROPHILS 64.7 % (40-80); PLATELET COUNT 202 10x3/uL (130-400); RBC 4.46 10x6/uL (4.00-5.40); RDW 13.4 % (11.5-14.5); WBC 10.3 10x3/uL (4.8-10.8)
[2018-07-27 20:14] LABS: APPEARANCE HAZY (CLEAR); BACTERIA MODERATE /hpf (NONE SEEN); BILIRUBIN NEGATIVE (NEGATIVE); COLOR STRAW (YELLOW); GLUCOSE NEGATIVE (NEGATIVE); KETONE NEGATIVE (NEGATIVE); NITRITE NEGATIVE (NEGATIVE); PROTEIN NEGATIVE (NEGATIVE); RED CELLS - URINE OCC /hpf (0-5); UROBILINOGEN NORMAL (NORMAL); WHITE CELLS - URINE 0-5 /hpf (0-5)
[2018-07-27 20:18] VITALS: BP 110/76
[2018-07-27 20:28] LABS: ALBUMIN 3.8 g/dL (3.4-5.0); ALKALINE PHOSPHATASE 90 U/L (46-116); ALT (SGPT) 25 U/L (10-68); BILIRUBIN - TOTAL 0.72 mg/dL (0.2-1.3); CALC OSMOLALITY 276 mosm/kg (275-300); CALCIUM 9.1 mg/dL (8.5-10.1); CARBON DIOXIDE 29.5 mmol/L (21.0-32.0); CHLORIDE - SERUM 100 mmol/L (98-107); GLUCOSE 135 mg/dL (74-106); POTASSIUM - SERUM 4.3 mmol/L (3.5-5.1); PROTEIN - SERUM 7.2 g/dL (6.4-8.2); SODIUM 137 mmol/L (136-145); UREA NITROGEN 15 mg/dL (7-18); eGFR NON AFRICAN AMERICAN 58 mL/min (90-120)
[2018-07-27 20:35] LABS: AMYLASE - SERUM 65 U/L (25-115); CREATINE KINASE 114 UL (21-215); LIPASE 226 U/L (73-393)
[2018-07-27 20:42] LABS: TROPONIN-I < 0.017 ng/mL (0.000-0.060)
[2018-07-27 21:18] VITALS: BP 143/77
[2018-07-27 23:11] VITALS: BP 131/83
[2018-07-28] VITALS (7 sets, daily range): BP systolic 99–127; BP diastolic 51–74; Ht 170.2 cm; Wt 64.7 kg
[2018-07-28 05:21] LABS: BASOPHILS 0.3 % (0-2); EOSINOPHILS 0.6 % (0-7); HEMATOCRIT 35.8 % (36.0-48.0); HEMOGLOBIN 11.6 g/dL (12-16); IMMATURE GRANULOCYTES 0.1 % (0-5); LYMPHOCYTES 17.1 % (15-50); MCH 28.9 pg (26.0-34.0); MCHC 32.4 g/dL (31.0-37.0); MCV 89.1 fL (80.0-100.0); MEAN PLATELET VOLUME 10.9 fL (7.4-10.4); MONOCYTES 11.8 % (2-11); NEUTROPHILS 70.1 % (40-80); PLATELET COUNT 179 10x3/uL (130-400); RBC 4.02 10x6/uL (4.00-5.40); RDW 13.5 % (11.5-14.5)
[2018-07-28 05:27] LABS: WBC 7.2 10x3/uL (4.8-10.8)
[2018-07-28 05:57] LABS: CALC OSMOLALITY 274 mosm/kg (275-300); CALCIUM 8.1 mg/dL (8.5-10.1); CARBON DIOXIDE 29.8 mmol/L (21.0-32.0); CHLORIDE - SERUM 104 mmol/L (98-107); CKMB 0.8 U/L (0.0-3.6); CREATINE KINASE 96 UL (21-215); CREATININE - SERUM 1.1 mg/dL (0.6-1.3); GLUCOSE 107 mg/dL (74-106); POTASSIUM - SERUM 4.2 mmol/L (3.5-5.1); SODIUM 137 mmol/L (136-145); TROPONIN-I < 0.017 ng/mL (0.000-0.060); UREA NITROGEN 14 mg/dL (7-18); eGFR NON AFRICAN AMERICAN 52 mL/min (90-120)
[2018-07-28 09:19] LABS: PROTIME 66.6 SECONDS (11.6-15.0)
[2018-07-28 09:20] LABS: INR 8.12 (0.85-1.17)
[2018-07-29 04:00] VITALS: BP 111/60
[2018-07-29 05:20] LABS: BASOPHILS 0.2 % (0-2); EOSINOPHILS 2.8 % (0-7); HEMATOCRIT 34.8 % (36.0-48.0); HEMOGLOBIN 11.2 g/dL (12-16); MCH 29.1 pg (26.0-34.0); MCHC 32.2 g/dL (31.0-37.0); MCV 90.4 fL (80.0-100.0); MEAN PLATELET VOLUME 11.2 fL (7.4-10.4); MONOCYTES 8.3 % (2-11); NEUTROPHILS 64.7 % (40-80); PLATELET COUNT 178 10x3/uL (130-400); RBC 3.85 10x6/uL (4.00-5.40); RDW 13.8 % (11.5-14.5); WBC 6.1 10x3/uL (4.8-10.8)
[2018-07-29 05:36] LABS: PROTIME 74.7 SECONDS (11.6-15.0)
[2018-07-29 05:37] LABS: INR 9.39 (0.85-1.17)
[2018-07-29 05:39] LABS: ANION GAP 7.1 mmol/L (8-16); CALCIUM 8.1 mg/dL (8.5-10.1); CARBON DIOXIDE 29.8 mmol/L (21.0-32.0); CREATININE - SERUM 1.2 mg/dL (0.6-1.3); MAGNESIUM - SERUM 1.9 mg/dL (1.8-2.4); PHOSPHOROUS 3.2 mg/dL (2.5-4.9); POTASSIUM - SERUM 3.9 mmol/L (3.5-5.1)
[2018-07-29 08:19] VITALS: BP 114/62
[2018-07-29 11:42] VITALS: BP 103/54
[2018-07-29 15:13] VITALS: BP 110/57
[2018-07-29 20:00] VITALS: BP 109/59
[2018-07-30] VITALS: BP 112/60
[2018-07-30 04:00] VITALS: BP 119/66
[2018-07-30 04:52] LABS: BASOPHILS 0.2 % (0-2); EOSINOPHILS 1.5 % (0-7); HEMATOCRIT 28.5 % (36.0-48.0); HEMOGLOBIN 9.1 g/dL (12-16); LYMPHOCYTES 25.2 % (15-50); MCH 28.8 pg (26.0-34.0); MCHC 31.9 g/dL (31.0-37.0); MCV 90.2 fL (80.0-100.0); MEAN PLATELET VOLUME 11.2 fL (7.4-10.4); NEUTROPHILS 62.1 % (40-80); RBC 3.16 10x6/uL (4.00-5.40); RDW 13.7 % (11.5-14.5); WBC 6.1 10x3/uL (4.8-10.8)
[2018-07-30 04:54] LABS: PLATELET COUNT 134 10x3/uL (130-400)
[2018-07-30 05:06] LABS: INR 4.26 (0.85-1.17); PROTIME 40.1 SECONDS (11.6-15.0)
[2018-07-30 05:12] LABS: ALBUMIN 2.3 g/dL (3.4-5.0); ANION GAP 7.7 mmol/L (8-16); BILIRUBIN - TOTAL 0.89 mg/dL (0.2-1.3); CALCIUM 7.7 mg/dL (8.5-10.1); CARBON DIOXIDE 28.4 mmol/L (21.0-32.0); CREATININE - SERUM 1.2 mg/dL (0.6-1.3); MAGNESIUM - SERUM 1.7 mg/dL (1.8-2.4); PHOSPHOROUS 3.1 mg/dL (2.5-4.9); POTASSIUM - SERUM 4.1 mmol/L (3.5-5.1); PROTEIN - SERUM 5.2 g/dL (6.4-8.2)
[2018-07-30 07:54] VITALS: BP 106/59
[2018-07-30 11:27] VITALS: BP 97/53
[2018-07-30 14:55] VITALS: BP 101/65
[2018-07-30 20:00] VITALS: BP 135/80
[2018-07-31] VITALS: BP 131/64
[2018-07-31 04:35] LABS: BASOPHILS 0.3 % (0-2); EOSINOPHILS 1.7 % (0-7); HEMATOCRIT 29.6 % (36.0-48.0); HEMOGLOBIN 9.6 g/dL (12-16); IMMATURE GRANULOCYTES 0.1 % (0-5); LYMPHOCYTES 25.1 % (15-50); MCHC 32.4 g/dL (31.0-37.0); MCV 89.4 fL (80.0-100.0); MEAN PLATELET VOLUME 11.1 fL (7.4-10.4); NEUTROPHILS 62.8 % (40-80); PLATELET COUNT 153 10x3/uL (130-400); RBC 3.31 10x6/uL (4.00-5.40); RDW 13.9 % (11.5-14.5); WBC 7.7 10x3/uL (4.8-10.8)
[2018-07-31 04:43] LABS: INR 1.47 (0.85-1.17); PROTIME 17.3 SECONDS (11.6-15.0)
[2018-07-31 04:45] LABS: ANION GAP 12.7 mmol/L (8-16); CALCIUM 8.5 mg/dL (8.5-10.1); CARBON DIOXIDE 26.6 mmol/L (21.0-32.0); CREATININE - SERUM 1.1 mg/dL (0.6-1.3)
[2018-07-31 04:46] LABS: POTASSIUM - SERUM 3.3 mmol/L (3.5-5.1)
[2018-07-31 05:53] VITALS: BP 118/98
[2018-07-31 07:59] VITALS: BP 122/63
[2018-07-31 10:46] VITALS: BP 122/62
[2018-07-31] MEDS ORDERED: COUMADIN2 MG PO (12:00)
[2018-07-31] MEDS ORDERED: MACRODANTIN100 MG PO (12:02)
== END 2018-07-31 14:41 | disposition home or self-care (01) | DRG 690 ==
LOC: D.ER 19:27 → D.M2 22:50
PROVIDERS: Family Medicine
DX: N10 Acute pyelonephritis (principal); I48.92 Unspecified atrial flutter; Z79.01 Long term (current) use of anticoagulants; I07.1 Rheumatic tricuspid insufficiency; I11.0 Hypertensive heart disease with heart failure; I50.9 Heart failure, unspecified; N83.209 Unspecified ovarian cyst, unspecified side; T45.515A Adverse effect of anticoagulants, initial encounter; I48.0 Paroxysmal atrial fibrillation; D64.9 Anemia, unspecified